=== PATIENT | male | born 1945 | race Caucasian/White ===

== ENCOUNTER 2016-07-03 15:07 | Emergency (ER) | payer MEDICAID, OTHER ==
[2016-07-03] MEDS ORDERED: Famotidine IV * 20 MG in NS 0.9% 100 ML* 100 ML IVPB ONE (16:12)
[2016-07-03] MEDS ORDERED: Dexamethasone IV* 4 MG/ML 1 ML (4 MG) IV SLOW PU ONE (16:12)
[2016-07-03] MEDS ORDERED: diPHENhydraMINE IV* 50 MG/ML 1 ml VIAL (BENADRYL) IV ONE (16:12)
[2016-07-03] MEDS ORDERED: metFORMIN* 500 MG TAB PO ONE (16:13)
[2016-07-03] MEDS ORDERED: NS 0.9% 1000 ML* 1,000 ML IV SCH (16:15)
[2016-07-03 16:53] LABS: Hematocrit 48 % (42-52); Hemoglobin 16.1 g/dl (14.0-18.0); Mean Corpuscular HGB Conc 33 g/dl (31-36); Mean Corpuscular Hemoglobin 31 pg (27-31); Mean Corpuscular Volume 94 fL (80-94); Mean Platelet Volume 11 um3 (7.4-10.4); Red Blood Count 5.16 10^6/ul (4.0-5.4); Red Cell Distribution Width 13 % (10.5-15); White Blood Count 7.8 10^3/ul (3.5-10.8)
[2016-07-03 17:08] LABS: BUN/Creatinine Ratio 13.9 (8-20); Calcium 9.8 mg/dL (8.6-10.3); EGFR African American 87.2 (>60); EGFR Non-African American 67.8 (>60); Globulin 2.5 g/dL (2-4); Potassium 3.7 mmol/L (3.5-5.0); Total Bilirubin 0.8 mg/dL (0.2-1.0); Total Protein 6.5 g/dL (6.4-8.9)
[2016-07-03 18:25] VITALS: BP 135/78
--- NOTE | 2016-07-03 18:35 | ED ---
Shaun Wray Matthew, scribed for Milo Ortiz MD on 07/03/16 at 1617 . Skin Complaint - HPI Summary HPI Summary: A 71 y/o male presents to the ED with a diffuse rash since 07/01/15. The pain is rated 2/10 in severity. The patient believes that he was bit by a spider. The patient took Benadryl [employer] without relieve. Associated symptoms include itchiness and blisters. The patient denies new detergents and soaps. He is a type 2 diabetic. - History of Current Complaint Chief Complaint: EDRashSkinAbscess Time Seen by Provider: 07/03/16 15:57 Stated Complaint: RASH/BLISTERS Hx Obtained From: Patient Onset/Duration: Started Days Ago, Atraumatic, Still Present Skin Exposure Onset/Duration: Days Ago Timing: Constant Onset Severity: Moderate Current Severity: Moderate Pain Intensity: 2 Pain Scale Used: 0-10 Numeric Skin Location: Diffuse Character: Pruritus, Hives, Redness Alleviating Symptom(s): Nothing Associated Signs & Symptoms: Rash - Allergy/Home Medications Allergies/Adverse Reactions: Allergies Allergy/AdvReac Type Severity Reaction Status Date / Time Codeine Allergy Unknown Unknown Verified 07/03/16 15:17 Reaction Details Iodine Allergy Unknown Unknown Verified 07/03/16 15:17 Reaction Details Penicillins AdvReac Vomiting Verified 07/03/16 15:17 peanuts Allergy Unknown Unknown Uncoded 07/03/16 15:17 Reaction Details PMH/Surg Hx/FS Hx/Imm Hx Endocrine/Hematology History: Reports: Hx Anticoagulant Therapy - warfarin, Hx Diabetes Denies: Hx Thyroid Disease Cardiovascular History: Reports: Hx Hypertension, Hx Syncope Denies: Hx Pacemaker/ICD Respiratory History: Reports: Hx Asthma - in younger years, Hx Pneumonia - in past, Hx Sleep Apnea Denies: Hx Chronic Obstructive Pulmonary Disease (COPD), Hx Pulmonary Edema History: Denies: Hx Renal Disease Musculoskeletal History: Reports: Hx Back Problems Sensory History: Reports: Hx Contacts or Glasses, Hx Hearing Problem - right ear Opthamlomology History: Reports: Hx Contacts or Glasses Neurological History: Reports: Hx Headaches Denies: Hx Dementia, Hx Seizures Psychiatric History: Denies: Hx Substance Abuse Infectious Disease History: No Infectious Disease History: Denies: Hx Hepatitis, Hx Human Immunodeficiency Virus (HIV), Traveled Outside the [place] in Last 30 Days - Family History Family History: FHx of Lung CA - Father - Social History Lives: With Family Alcohol Use: None Substance Use Type: Reports: None Hx Tobacco Use: No Smoking Status (MU): Never Smoked Tobacco Review of Systems Constitutional: Negative Eyes: Negative ENT: Negative Cardiovascular: Negative Respiratory: Negative Gastrointestinal: Negative Genitourinary: Negative Musculoskeletal: Negative Skin: Other - Itchiness, Blisters Positive: Rash - Diffuse hives Neurological: Negative Psychological: Normal All Other Systems Reviewed And Are Negative: Yes Physical Exam - Summary Physical Exam Summary: Vital signs: reviewed General: Patient is comfortable lying in stretcher with no signs of distress HEENT: within normal limits Lungs: CTA B/L CVS: S1 & S2 present. No murmurs appreciated. Abdomen: Soft, NT, Positive BS. Extremities: FROM x4, no edema, no cyanosis, positive pulses Neuro: Alert and oriented x 3. No acute neurological deficits. Skin: Warm and dry. Positive hives and rashes diffusely all over his body. Triage Information Reviewed: Yes Vital Signs On Initial Exam: Initial Vitals Temp Pulse Resp BP Pulse Ox 95.9 F 105 16 111/86 100 07/03/16 15:12 07/03/16 15:12 07/03/16 15:12 07/03/16 15:12 07/03/16 15:12 Vital Signs Reviewed: Yes Diagnostics - Vital Signs Vital Signs Temp Pulse Resp BP Pulse Ox 07/03/16 15:12 95.9 F 105 16 111/86 100 - Laboratory Lab Results: Lab Results 07/03/16 07/03/16 Range/Units 16:42 16:42 WBC 7.8 (3.5-10.8) 10^3/ul RBC 5.16 (4.0-5.4) 10^6/ul Hgb 16.1 (14.0-18.0) g/dl Hct 48 (42-52) % MCV 94 (80-94) fL MCH 31 (27-31) pg MCHC 33 (31-36) g/dl RDW 13 (10.5-15) % Plt Count 146 L (150-450) 10^3/ul MPV 11 H (7.4-10.4) um3 Neut % (Auto) 75.2 (38-83) % Lymph % (Auto) 16.0 L (25-47) % [place] % (Auto) 6.1 (1-9) % Eos % (Auto) 1.8 (0-6) % Baso % (Auto) 0.9 (0-2) % Absolute Neuts (auto) 5.9 (1.5-7.7) 10^3/ul Absolute Lymphs (auto) 1.3 (1.0-4.8) 10^3/ul Absolute Monos (auto) 0.5 (0-0.8) 10^3/ul Absolute Eos (auto) 0.1 (0-0.6) 10^3/ul Absolute Basos (auto) 0.1 (0-0.2) 10^3/ul Absolute Nucleated RBC 0.01 10^3/ul Nucleated RBC % 0.1 Sodium 132 L (133-145) mmol/L Potassium 3.7 (3.5-5.0) mmol/L Chloride 102 (101-111) mmol/L Carbon Dioxide 25 (22-32) mmol/L Anion Gap 5 (2-11) mmol/L BUN 15 (6-24) mg/dL Creatinine 1.08 (0.67-1.17) mg/dL Est GFR ( Amer) 87.2 (>60) Est GFR (Non-Af Amer) 67.8 (>60) BUN/Creatinine Ratio 13.9 (8-20) Glucose 163 H (70-100) mg/dL Calcium 9.8 (8.6-10.3) mg/dL Total Bilirubin 0.80 (0.2-1.0) mg/dL AST 44 H (13-39) U/L ALT 46 (7-52) U/L Alkaline Phosphatase 58 (34-104) U/L Total Protein 6.5 (6.4-8.9) g/dL Albumin 4.0 (3.2-5.2) g/dL Globulin 2.5 (2-4) g/dL Albumin/Globulin Ratio 1.6 (1-3) Result Diagrams: 07/03/16 16:42 07/03/16 16:42 Lab Statement: Any lab studies that have been ordered have been reviewed, and results considered in the medical decision making process. Course/Dx - Course Assessment/Plan: A 71 y/o male presents to the ED with a CC of diffuse generalized itchy hives since the 4th. The patient has been taking Benadryl with no symptom improvement. No new medication or perfumes, and he does not know the etiology. Test results WNL except slightly elevated glucose of 163. The patient is diabetic therefore Glucophage, Benadryl, Pepcid, and Decadron 4mg was given. After the medication, the symptoms improved. Th patient was advised to do frequent checks on his blood sugars and follow-up with PCP. At this point, the patient states all symptoms have improved. - Diagnoses Provider Diagnoses: Allergic Reaction with unknown etiology Discharge - Discharge Plan Condition: Stable Disposition: HOME Prescriptions: Famotidine TAB* [Pepcid TAB*] 40 mg PO DAILY #10 tab predniSONE TAB* [Deltasone TAB*] 40 mg PO DAILY #10 tab Patient Education Materials: Famotidine (By mouth), Prednisone (By mouth), Allergies (ED) Referrals: Brian Lozano MD [Primary Care Provider] - Additional Instructions: Please follow-up with your primary care physician in two days. The documentation as recorded by the Shaun emmanuel Matthew accurately reflects the service I personally performed and the decisions made by , Milo Ortiz MD.
[2016-07-03 22:01] LABS: C Reactive Protein 38.25 mg/L (< 5.00)
== END 2016-07-03 18:25 | disposition home or self-care (01) ==
LOC: ED 15:07
DX: T78.40XA Allergy, unspecified, initial encounter (principal); R21 Rash and other nonspecific skin eruption; L50.9 Urticaria, unspecified; L29.9 Pruritus, unspecified
CPT/HCPCS: 36415; 80053; 85025; 86140; 96365; 96375; 99282; A9270-GY; J1100; J1200

== ENCOUNTER 2017-02-12 12:33 | Emergency (ER) | payer OTHER ==
[2017-02-12] MEDS ORDERED: oxyCODONE/Acetamin 10/325(NF) TAB PO PRN (13:40)
[2017-02-12] MEDS ORDERED: oxyCODONE/Acetamin 5/325 MG* TAB PO PRN ×2 (14:01→14:07)
[2017-02-12] MEDS ORDERED: oxyCODONE TAB* 5 MG TAB PO PRN ×2 (14:03→14:36)
[2017-02-12] MEDS ORDERED: Ondansetron ODT TAB* 4 MG PO ONE (14:05)
--- NOTE | 2017-02-12 14:13 | RAD ---
HISTORY: Right humerus pain COMPARISONS: December 20, 2003 VIEWS: 7, Frontal internal rotation, external rotation, outlet, and axillary views of the right shoulder with frontal internal and external rotation views of the right humerus FINDINGS: BONE DENSITY: Normal. BONES: There is a displaced and somewhat angulated fracture of the surgical neck of the right humerus. 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 ALIGNMENT: There is no dislocation. SOFT TISSUES: Unremarkable. OTHER FINDINGS: None. IMPRESSION: FRACTURE OF THE PROXIMAL RIGHT HUMERUS
--- NOTE | 2017-02-12 14:17 | RAD ---
HISTORY: Right wrist pain, and pain COMPARISONS: None VIEWS: 4, Frontal and lateral views of the right wrist and of the right hand FINDINGS: BONE DENSITY: Normal. BONES: There is linear lucency of the proximal fifth metacarpal. There is a questionable linear lucency of the distal phalanx, seen on one projection only. JOINTS: There is no arthropathy. ALIGNMENT: There is no dislocation. SOFT TISSUES: Unremarkable. OTHER FINDINGS: None. IMPRESSION: 1. PROBABLE NONDISPLACED FRACTURE OF THE BASE OF THE FIFTH METACARPAL. 2. QUESTIONABLE NONDISPLACED FRACTURE OF THE DISTAL PHALANX. 3. RECOMMEND CORRELATION WITH SITE OF PAIN.
--- NOTE | 2017-02-12 14:18 | RAD ---
HISTORY: Right elbow pain COMPARISONS: None VIEWS: 2, Frontal and lateral views of the right elbow FINDINGS: BONE DENSITY: Normal. BONES: There is no displaced fracture. 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 There is no posterior supracondylar fat pad to suggest a joint effusion. ALIGNMENT: There is no dislocation. SOFT TISSUES: Unremarkable. OTHER FINDINGS: None. IMPRESSION: NO ACUTE OSSEOUS INJURY. IF SYMPTOMS PERSIST, RECOMMEND REPEAT IMAGING.
[2017-02-12] MEDS ORDERED: fentaNYL* 50 MCG/ML 2 ML VIAL (100 MCG VIAL) IV SLOW PU ONE ×2 (16:07→18:09)
--- NOTE | 2017-02-12 16:20 | RAD ---
HISTORY: Fall, right hand pain COMPARISONS: February 12, 2017 at 1:20 PM VIEWS: 1, oblique view of the right hand FINDINGS: BONE DENSITY: Normal. BONES: Again noted is a nondisplaced fracture of the base of the fifth metacarpal. The distal phalangeal fracture of the fifth digit is not well visualized on this oblique view. JOINTS: There is no arthropathy. ALIGNMENT: There is no dislocation. SOFT TISSUES: Unremarkable. OTHER FINDINGS: None. IMPRESSION: PERSISTENT NONDISPLACED FRACTURE OF THE BASE OF THE FIFTH METACARPAL
--- NOTE | 2017-02-12 17:06 | RAD ---
INDICATION: Traumatic fracture of the right shoulder. COMPARISON: Correlation is made with a prior x-ray study of the right shoulder of the same day. TECHNIQUE: Contiguous axial sections were obtained of the right shoulder. Images were reconstructed in the sagittal and coronal planes. FINDINGS: There is a comminuted fracture of the surgical neck of the humerus. The fracture extends through the humeral head to the articular surface. There is a mild step off along the articular surface of the humeral head at the level of the fracture of approximately 2 mm. The major fracture fragments are overriding with the distal fragment displaced anterior approximately one shaft diameter. The distal fragment is angulated posterior relative to the proximal fragment. The clavicle and scapula appear intact. No hematoma is seen. IMPRESSION: COMMINUTED, DISPLACED, ANGULATED INTRA-ARTICULAR FRACTURE OF THE SURGICAL NECK OF THE HUMERUS AND HUMERAL HEAD.
--- NOTE | 2017-02-12 18:46 | ED ---
Moreno Wray Angela, scribed for Milo Ortiz MD on 02/12/17 at 1303 . Upper Extremity Pain - HPI Summary HPI Summary: Pt is a 71 y/o male presenting to [facility] c/o right shoulder pain radiating to his wrist s/p fall 3 days ago. Pt notes he fell through a door in the dark with his arm extended out and landed on his right arm. Pt denies LOC but notes he hit his head against his boots. Pt describes an intermittent "burning" and tingling sensation on his right fingers. Pt denies sustaining any other injury, lower extremity pain, hip pain, chest pain, back pain and neck pain. He notes taking 2 vicodin (given by his nurse), his last was dose 4 hours [employer], and using wet moist heating pads with minimal relief. - History of Current Complaint Chief Complaint: EDShoulderClavicleInj Stated Complaint: FALL/RT SHOULDER PAIN Time Seen by Provider: 02/12/17 12:50 Hx Obtained From: Patient Mechanism Of Injury: Fall From Height Of: Onset/Duration: Started Days Ago, Still Present Timing: Lasting Days Pain Location: Shoulder - right, Wrist - right, Other: - right fingers Aggravating Factor(s): Nothing Alleviating Factor(s): Compression - cold Associated Signs & Symptoms: Positive: Swelling, Redness. Negative: Chest Pain , Back Pain, Neck Pain - Allergies/Home Medications Allergies/Adverse Reactions: Allergies Allergy/AdvReac Type Severity Reaction Status Date / Time Codeine Allergy Unknown Unknown Verified 02/12/17 12:36 Reaction Details Iodine Allergy Unknown Unknown Verified 02/12/17 12:36 Reaction Details Penicillins AdvReac Vomiting Verified 02/12/17 12:36 peanuts Allergy Unknown Unknown Uncoded 02/12/17 12:36 Reaction Details PMH/Surg Hx/FS Hx/Imm Hx Endocrine/Hematology History: Reports: Hx Anticoagulant Therapy - warfarin, Hx Diabetes Denies: Hx Thyroid Disease Cardiovascular History: Reports: Hx Atrial Fibrillation, Hx Hypertension, Hx Syncope Denies: Hx Pacemaker/ICD Respiratory History: Reports: Hx Asthma - in younger years, Hx Pneumonia - in past, Hx Sleep Apnea Denies: Hx Chronic Obstructive Pulmonary Disease (COPD), Hx Pulmonary Edema History: Denies: Hx Renal Disease Musculoskeletal History: Reports: Hx Back Problems Sensory History: Reports: Hx Contacts or Glasses, Hx Hearing Problem - right ear Opthamlomology History: Reports: Hx Contacts or Glasses Neurological History: Reports: Hx Headaches Denies: Hx Dementia, Hx Seizures Psychiatric History: Denies: Hx Substance Abuse Infectious Disease History: Denies: Hx Hepatitis, Hx Human Immunodeficiency Virus (HIV), Traveled Outside the [place] in Last 30 Days - Family History Family History: FHx of Lung CA - Father - Social History Alcohol Use: None Substance Use Type: Reports: None Hx Tobacco Use: No Smoking Status (MU): Never Smoked Tobacco Review of Systems Negative: Fever, Chills Negative: Chest Pain Musculoskeletal: Other - NEGATIVE: back pain, hip pain, LE pain Positive: Other - Right shoulder pain, right wrist pain, right fingers "burning " and tingling. All Other Systems Reviewed And Are Negative: Yes Physical Exam - Summary Physical Exam Summary: VITAL SIGNS: Reviewed. GENERAL: Patient is a well-developed and nourished male who is lying comfortable in the stretcher. Patient is not in any acute respiratory distress. HEAD AND FACE: Normocephalic and atraumatic. EYES: PERRLA, EOMI x 2, No injected conjunctiva. EARS: Hearing grossly intact. MOUTH: Oropharynx within normal limits. NECK: Supple, trachea is midline, no adenopathy, no JVD. CHEST: Symmetric, no tenderness at palpation LUNGS: Clear to auscultation bilaterally. No wheezing or crackles. CVS: RRR, S1 and S2 present, no murmurs or gallops appreciated. EXTREMITIES: FROM in all major joints, no edema, no cyanosis or clubbing. There is tenderness in the right shoulder with swelling and decreased ROM. There is good capillary refill. There are good pulses. NEURO: Alert and oriented x 3. No acute neurological deficits. Speech is normal. SKIN: Dry and warm Triage Information Reviewed: Yes Vital Signs On Initial Exam: Initial Vitals Temp Pulse Resp BP Pulse Ox 96.5 F 109 20 100/71 98 02/12/17 12:36 02/12/17 12:36 02/12/17 12:36 02/12/17 12:36 02/12/17 12:36 Vital Signs Reviewed: Yes Diagnostics - Vital Signs Vital Signs Temp Pulse Resp BP Pulse Ox 02/12/17 12:36 96.5 F 109 20 100/71 98 - Laboratory Lab Results: Lab Results 02/12/17 Range/Units 14:53 POC Glucose (mg/dL) 190 H (70-100) mg/dL Lab Statement: Any lab studies that have been ordered have been reviewed, and results considered in the medical decision making process. - Radiology Right Hand XR Xray Interpretation: Positive (See Comments) - IMPRESSION: 1. Probable nondisplaced fracture of the base of the fifth metacarpal. 2. Questionable nondisplaced fracture of the distal phalanx. 3. Recommend correlation with site of pain. Radiology Interpretation Completed By: Radiologist Right shoulder XR Xray Interpretation: Positive (See Comments) - IMPRESSION: Fracture of the proximal right humerus Radiology Interpretation Completed By: Radiologist Right Wrist XR Xray Interpretation: Positive (See Comments) - IMPRESSION: 1. Probable nondisplaced fracture of the base of the fifth metacarpal. 2. Questionable nondisplaced fracture of the distal phalanx. 3. Recommend correlation with site of pain. Radiology Interpretation Completed By: Radiologist Right elbow XR Xray Interpretation: No Acute Changes - IMPRESSION: No acute osseous injury. If symptoms persist, recommed repeat imaging. Radiology Interpretation Completed By: Radiologist Right humerus XR Xray Interpretation: Positive (See Comments) - IMPRESSION: Fracture of the proximal right humerus. Radiology Interpretation Completed By: Radiologist Right hand XR Xray Interpretation: Positive (See Comments) - IMPRESSION: persistent nondisplaced fracture of the base of the fifth metacarpal. Radiology Interpretation Completed By: Radiologist - CT Right Upper Extremity CT CT Interpretation: Positive (See Comments) - IMPRESSION: Comminuted, displaced, angulated intra-articular fracture of the surgical neck of the humerus and humeral head. CT Interpretation Completed By: Radiologist Course/Dx - Course Course Of Treatment: Pt is a 71 y/o male presenting to [facility] c/o right shoulder pain radiating to his wrist s/p fall 3 days ago. Pt notes he fell through a door in the dark with his arm extended out and landed on his right arm. Pt denies LOC but notes he hit his head against his boots. Pt describes an intermittent "burning" and tingling sensation on his right fingers. Pt denies sustaining any other injury, lower extremity pain, hip pain, chest pain, back pain and neck pain. He notes taking 2 vicodin (given by his nurse), his last was dose 4 hours [employer], and using wet moist heating pads with minimal relief. X- ray showed that the pt has a right humerus fracture as well as a right fifth metacarpal fracture. I consulted with Dr. Cole who requested I do a CT scan of the shoulder. After the CT was reviewed by Dr. Cole, he examined the pt and he requested that the pt be placed in a shoulder sling and a right wrist splint. He also recommends the pt to be discharged home and follow up with him next week in his office. At this time I discussed all the results with the pt, he understands and agrees with the plan. Dr. Cole did not request to do any blood work or any further work up for surgery clearance. I discussed all the findings and test results with the patient. Patient was instructed to return to the emergency room immediately if any of the symptoms return or worsens. Plan of care was discussed with the patient and understands and agrees. All questions were answered at patient satisfaction. There were no further complaints or concerns. - Diagnoses Provider Diagnoses: Fracture of neck of humerus, Fracture of fifth metacarpal bone - Physician Notifications Discussed Care of Patient With: Elian Cole Time Discussed With Above Provider: 15:53 Instructed by Provider To: Other - I consulted the pt's case with Dr. Cole. He recommends a CT of the shoulder. Discharge - Discharge Plan Condition: Stable Disposition: HOME Patient Education Materials: Arm Fracture in Adults (ED), Hand Fracture (ED) Referrals: Brian Lozano MD [Primary Care Provider] - Elian Cole MD [Medical Doctor] - Additional Instructions: Please follow up with Dr. Cole (orthopedics) next week. The documentation as recorded by the Moreno emmanuel Angela accurately reflects the service I personally performed and the decisions made by , Milo Ortiz MD.
[2017-02-12 19:13] VITALS: BP 127/80
--- NOTE | 2017-02-12 22:21 | CONS ---
CONSULTATION REPORT: DATE OF CONSULT: 02/12/17 REASON FOR CONSULT: Right shoulder and hand fractures. HISTORY OF PRESENT ILLNESS: The patient is a 71-year-old man, retired, a of , wi th multiple medical problems, on Coumadin, who presents 3 days status post a fall at home, on , determined by the emergency department to have fractures to the right proximal humerus and right fifth metatarsal. I was called to evaluate. The patient's reports that the patient fell from a standing height at home to an outstretched r ight hand. The patient is not sure if he dislocated his shoulder or not. He just notes that it divina t significantly. The patient refused to seek medical attention for 3 days, but finally relented. The patient reports right shoulder pain and right hand pain. The patient's has an acute medica l issue, with some cataracts and a recent history of brain aneurysm requiring intense medical manage ment. The patient describes right shoulder pain. The patient's and he, both acknowledged that the pa tient prefers to minimize medical care. PAST MEDICAL HISTORY: Hypertension, gastroesophageal reflux disease, seasonal allergies, diabetes m ellitus, hypercholesterolemia, atrial fibrillation. PAST SURGICAL HISTORY: Tonsillectomy, vasectomy. MEDICATIONS: 1. Amlodipine. 2. AndroGel. 3. Atenolol. 4. Diphenhydramine. 5. Duloxetine. 6. Docusate. 7. Exenatide. 8. Fluticasone nasal spray. 9. Famotidine. 10. Fexofenadine. 11. Furosemide. 12. Glipizide. 13. Hydrocodone with acetaminophen. 14. Lansoprazole. 15. Metformin. 16. Oxycodone. 17. Pravastatin. 18. Spironolactone. 19. Sucralfate. 20. Warfarin. 21. Valsartan. 22. Zolpidem. 23. Multiple supplements. 24. Mupirocin ointment. 25. Urea cream. 26. Clindamycin phosphate topical solution. ALLERGIES: PENICILLIN, CODEINE, IODINE CONTRAST, OLSON PEPPERS, PEANUT OIL, IMITATION MAPLE. REVIEW OF SYSTEMS: No chest pain, no fevers, sweats, chills, no shortness of breath. PHYSICAL EXAM: Vitals at 1:02 p.m.; temperature 97.6 degrees Fahrenheit, pulse rate 99, blood press ure 119/82, respiratory rate 18, O2 sat 95% on room air. More recent blood pressure at 2:30 p.m. is 106/72. At 2:30 p.m., pulse rate was 102 and O2 sat was 91% on room air. No acute distress, alert and oriented, appropriate mood and affect, appropriate dress and hygiene, a lbeit slightly disheveled, gait was not assessed as the patient was lying supine in the emergency ro om stretcher. Well-coordinated bilateral upper and lower extremities. Right upper extremity is tender to palpation about the proximal humerus. Pain with passive range of motion of the right shoulder. No soft tissue swelling or bruising. Skin is intact. Right upper e xtremity is neurovascularly intact distally. The patient has tenderness to palpation at the base of the fifth metatarsal. No significant soft ti ssue swelling or bruising. Intact skin. No other tenderness to palpation about the right upper extremity. DIAGNOSTIC STUDIES/LAB DATA: Imaging: X-ray views; a series of right shoulder views and right madeleine demetria views from today, February 12, were reviewed by me. They demonstrate a right proximal humerus f racture with displacement at a surgical neck fracture line. There is also a clear fracture line abo ut the superior humeral head visible on AP images. Unclear if there is an anatomic neck fracture li ne. Glenohumeral joint appears located. Four x-ray views of the right hand were also obtained and demonstrate a nondisplaced fracture of the base of the fifth metacarpal with no clear dislocation of the fifth carpometacarpal joint. A CT scan of the right shoulder was obtained. It shows a right proximal humerus fracture with a pre dominant surgical neck fracture line with displacement. There is 1.5 cm of anterior displacement of the humeral shaft fracture fragment. Only some mild overlap between fracture fragments in that sag ittal plane. In the coronal plane, there is approximately 20 degrees of angulation. There is a Hil l- Sachs fracture fragment, apparent on axial slices. This fracture fragment seems to have been dep ressed, pushed anteriorly, and also pushed superiorly and that is the fracture line visible on coron al slices of both x-ray and CT. ASSESSMENT: 1. Right shoulder proximal humerus fracture, displaced, surgical neck. 2. Right shoulder proximal humerus Hill-Sachs fracture, likely secondary to a fracture dislocation event, right shoulder. 3. Right hand base of fifth metacarpal fracture, nondisplaced. PLAN: 1. Before the patient returned from imaging, the patient's told me that he strongly prefers av oiding medical care and intervention, that was why the patient took 3 days to report to the hospital . The patient's herself also has some current medical issues that is occupying the time of bot h the patient and his . Therefore, they prefer less intervention. 2. I explained that given the amount of displacement in the sagittal plane at the surgical neck, a surgery could certainly be indicated. Generally, more than 1 cm of displacement is an indication fo r surgery. However, given the patient's multiple medical problems, his lower functional level and h is increase in avoiding medical care, nonoperative management would also be appropriate. 3. The patient, his , and I decided to treat him nonoperatively for now. We will see if the fr acture reduction improves with some time and the gravity assistance of wearing a sling. 4. The patient will be given a sling for the right upper extremity and is to wear it at all times, both daytime and nighttime while sleeping. 5. The patient will be given a removable wrist splint for the right fifth metacarpal fracture. 6. The patient will follow up with me in clinic on Wednesday or Wednesday, 02/22/17 or 02/23/17. I will obtain x-rays of the right shoulder at that time. We will decide whether the patient should underg o surgery or continue nonoperative management. 7. The patient's surgery, if performed as an outpatient, would be limited in timing by his [facility] ent of stopping Coumadin as well as being seen by primary care physician. However, that is our plan for now. [id number]/[facility] #: [id number]
== END 2017-02-12 19:13 | disposition home or self-care (01) ==
LOC: ED 12:33
DX: M25.511 Pain in right shoulder (principal); M25.531 Pain in right wrist; S42.309A Unspecified fracture of shaft of humerus, unspecified arm, initial encounter for closed fracture; W19.XXXA Unspecified fall, initial encounter; Y93.9 Activity, unspecified; Y92.9 Unspecified place or not applicable; Z79.01 Long term (current) use of anticoagulants; Z86.79 Personal history of other diseases of the circulatory system; E11.9 Type 2 diabetes mellitus without complications
CPT/HCPCS: 99283; A9270-GY; J3010

== ENCOUNTER 2022-10-23 08:37 | Inpatient (IN) ==
[2022-10-23] MEDS ORDERED: NS 0.9% 1000 ml BAG 1,000 ML IV ONE ×2 (09:18→10:24)
[2022-10-23 10:20] LABS: ABS Basophils 0.1 10^3/uL (0.0-0.1); ABS Lymphocytes 0.2 10^3/uL (1.0-4.8); ABS Monocytes 0.5 10^3/uL (0.0-1.1); ABS Neutrophils 9.4 10^3/uL (1.5-7.6); ABS Nucleated RBC 0.01 10^3/ul; Hematocrit 39.9 % (38-53); Hemoglobin 13.1 g/dL (13.2-16.3); Mean Corpuscular Hemoglobin 29.7 pg (27-33); Mean Corpuscular Hgb Conc 32.9 g/dL (31-36); Mean Corpuscular Volume 90.3 fL (80-97); Mean Platelet Volume 8.4 fL (7.5-11.2); Platelet Count 269 10^3/uL (150-450); Red Blood Count 4.43 10^6/uL (4.06-5.63); Red Cell Distribution Width 20.1 % (12-17); White Blood Count 10.2 10^3/uL (3.6-10.2)
[2022-10-23] MEDS ORDERED: Vancomycin 1,000 MG in NS 0.9% 250 ml 250 ML IVPB ONE (10:45)
[2022-10-23] MEDS ORDERED: Cefepime 1 GM in Dextrose 1 GM/50 ML BAG IV ONE (10:45)
[2022-10-23 11:12] LABS: Albumin 2.5 g/dL (3.2-5.2); C Reactive Protein 181.46 mg/L (<8.01); Calcium 7.8 mg/dL (8.6-10.3); Creatinine, Serum 2.65 mg/dL (0.67-1.17); Globulin 2.6 g/dL (2-4); Magnesium 1.4 mg/dL (1.9-2.7); Phosphorus 4.1 mg/dL (2.5-5.0); Potassium 5.7 mmol/L (3.5-5.0); Total Bilirubin 1.6 mg/dL (0.2-1.0); Total Protein 5.1 g/dL (6.4-8.9); eGFR CKD-EPI 24.4 (>60)
[2022-10-23] MEDS ORDERED: Lidocaine 4% GEL 10 GM TUBE TOPICAL ONE (11:16)
[2022-10-23] MEDS ORDERED: Morphine 4 MG/ML VIAL (1 ml) IV ONE (11:28)
[2022-10-23] MEDS ORDERED: Lidocaine 2% JELLY 6 ML Topical TOPICAL ONE (11:30)
[2022-10-23 11:41] LABS: High Sensitivity Troponin 1 Hr 13 pg/mL (<20)
[2022-10-23] MEDS ORDERED: Magnesium Sulfate 2 gm BAG 2 GM/50 ML BAG IVPB ONE (12:13)
[2022-10-23 12:15] LABS: Urine Appearance Cloudy; Urine Bilirubin Negative (Negative); Urine Blood Negative (Negative); Urine Color Amber; Urine Glucose Negative (Negative); Urine Ketones Negative (Negative); Urine Nitrite Negative (Negative); Urine Protein 1+(30 mg/dL) (Negative); Urine Specific Gravity 1.023 (1.002-1.030); Urine Urobilinogen Negative (Negative)
[2022-10-23 12:19] LABS: Urine Bacteria Absent (Absent); Urine Red Blood Cell Trace(0-2/hpf) (Absent); Urine Squamous Epithelial Cell Present (Absent); Urine White Blood Cell Trace(0-5/hpf) (Absent)
[2022-10-23] MEDS ORDERED: Vancomycin per Pharmacy 1 EA NOTE FOLLOW UP SCH (15:00)
[2022-10-23 16:26] LABS: INR 3.67 (0.88-1.18)
[2022-10-23 17:14] LABS: Potassium 5.6 mmol/L (3.5-5.0)
[2022-10-23] MEDS: Lactated Ringers 1000 ml BAG 1,000 ML IV SCH (17:28)
[2022-10-23] MEDS ORDERED: SODIUM ZIRCONIUM CYCLOSILICATE 10 GM PACKET PO ONE (17:36)
[2022-10-23] MEDS ORDERED: Polyethylene Glycol 3350 BTL 238 GM BTL PO PRN (17:36)
[2022-10-23] MEDS ORDERED: Digoxin IV 0.5 MG/2 ML AMP (0.25 MG/ML) IV SLOW PU ONE (17:46)
[2022-10-23] MEDS ORDERED: Polyethylene Glycol 3350 17 GM PACKET PO PRN (18:00)
[2022-10-23] MEDS ORDERED: HYDROcodone/ACETAMIN 5/325 mg TAB PO PRN (18:27)
[2022-10-24] MEDS: Lactated Ringers 1000 ml BAG 1,000 ML IV SCH ×2 (03:24→13:55)
[2022-10-24 05:47] LABS: ABS Lymphocytes 0.3 10^3/uL (1.0-4.8); ABS Monocytes 0.4 10^3/uL (0.0-1.1); ABS Neutrophils 6.2 10^3/uL (1.5-7.6); ABS Nucleated RBC 0.01 10^3/ul; Eosinophil % 0.5 %; Hematocrit 34.9 % (38-53); Hemoglobin 11.6 g/dL (13.2-16.3); Mean Corpuscular Hemoglobin 29.8 pg (27-33); Mean Corpuscular Hgb Conc 33.2 g/dL (31-36); Mean Corpuscular Volume 89.7 fL (80-97); Mean Platelet Volume 8.3 fL (7.5-11.2); Nucleated Red Blood Cells % 0.1 /100 WBC (0.0-0.4); Platelet Count 217 10^3/uL (150-450); Red Blood Count 3.89 10^6/uL (4.06-5.63); Red Cell Distribution Width 19.7 % (12-17)
[2022-10-24 05:58] LABS: INR 3.93 (0.88-1.18)
[2022-10-24] MEDS ORDERED: Vancomycin Random Level NOTE FOLLOW UP ONE (06:00)
[2022-10-24 06:33] LABS: Calcium 7.4 mg/dL (8.6-10.3); Creatinine, Serum 2.78 mg/dL (0.67-1.17); Potassium 5.6 mmol/L (3.5-5.0); Vancomycin Random 7.7 mcg/mL
[2022-10-24] MEDS: Multivitamins/Minerals TAB PO SCH (09:50)
[2022-10-24] MEDS: Cefepime 2 GM in Dextrose 2 GM/50 ML BAG IV SCH (09:50)
[2022-10-24] MEDS ORDERED: SODIUM ZIRCONIUM CYCLOSILICATE 10 GM PACKET PO ONE (11:38)
[2022-10-24] MEDS ORDERED: Vancomycin 1,250 MG in NS 0.9% 250 ml 250 ML IVPB ONE (14:00)
[2022-10-24] MEDS ORDERED: Dextrose 50% Syringe 50 ml 25 GM/50 ML SYRINGE IV PUSH PRN (18:23)
[2022-10-25] MEDS: Lactated Ringers 1000 ml BAG 1,000 ML IV SCH (01:06)
[2022-10-25 05:25] LABS: C Reactive Protein 165.65 mg/L (<8.01); Calcium 7.2 mg/dL (8.6-10.3); Creatinine, Serum 2.54 mg/dL (0.67-1.17); Potassium 4.8 mmol/L (3.5-5.0); Vancomycin Random 13.7 mcg/mL; eGFR CKD-EPI 25.6 (>60)
[2022-10-25] MEDS ORDERED: Vancomycin Random Level NOTE FOLLOW UP ONE (06:00)
[2022-10-25] MEDS: Cefepime 2 GM in Dextrose 2 GM/50 ML BAG IV SCH (08:54)
[2022-10-25] MEDS: Multivitamins/Minerals TAB PO SCH (08:55)
[2022-10-25 11:23] LABS: Digoxin 0.4 ng/ml (0.8-2.0)
[2022-10-25] MEDS ORDERED: Vancomycin 1000 MG in NS 0.9% 250 ML IVPB ONE (21:00)
[2022-10-25] MEDS ORDERED: Heparin 5000 UNITS/ML 1 mL VIAL SUBCUT SCH (22:00)
[2022-10-26 05:22] LABS: INR 2.69 (0.88-1.18)
[2022-10-26] MEDS ORDERED: Vancomycin Random Level NOTE FOLLOW UP ONE (06:00)
[2022-10-26 06:13] LABS: Albumin 2.1 g/dL (3.2-5.2); Albumin/Globulin Ratio 0.9 (1-3); C Reactive Protein 130.46 mg/L (<8.01); Calcium 7.6 mg/dL (8.6-10.3); Creatinine, Serum 2.05 mg/dL (0.67-1.17); Direct Bilirubin 0.8 mg/dL (0.03-0.18); Globulin 2.3 g/dL (2-4); Indirect Bilirubin 0.9 mg/dL (0.3-1.0); Potassium 4.6 mmol/L (3.5-5.0); Total Bilirubin 1.7 mg/dL (0.2-1.0); Total Protein 4.4 g/dL (6.4-8.9); Vancomycin Random 16.6 mcg/mL; eGFR CKD-EPI 33.2 (>60)
[2022-10-26] MEDS: Multivitamins/Minerals TAB PO SCH (09:31)
[2022-10-26] MEDS: Cefepime 2 GM in Dextrose 2 GM/50 ML BAG IV SCH (09:31)
[2022-10-26] MEDS: Prochlorperazine 5 mg/ml 2 ml VIAL (10 mg) IV PRN (19:45)
[2022-10-26] MEDS: Lactated Ringers 1000 ml BAG 1,000 ML IV SCH (20:27)
[2022-10-26] MEDS: ceFAZolin 1 GM ADVAN 1 GM in NS 0.9% 50 ML 50 ML IVPB SCH (22:22)
[2022-10-27 05:07] LABS: ABS Lymphocytes 0.3 10^3/uL (1.0-4.8); ABS Monocytes 0.8 10^3/uL (0.0-1.1); ABS Neutrophils 6.2 10^3/uL (1.5-7.6); ABS Nucleated RBC 0.01 10^3/ul; Eosinophil % 0.6 %; Hemoglobin 12.1 g/dL (13.2-16.3); Lymphocyte % 3.7 %; Mean Corpuscular Hemoglobin 29.3 pg (27-33); Mean Corpuscular Hgb Conc 32.7 g/dL (31-36); Mean Corpuscular Volume 89.8 fL (80-97); Mean Platelet Volume 8.1 fL (7.5-11.2); Nucleated Red Blood Cells % 0.1 /100 WBC (0.0-0.4); Platelet Count 182 10^3/uL (150-450); Red Blood Count 4.11 10^6/uL (4.06-5.63); Red Cell Distribution Width 20.2 % (12-17); White Blood Count 7.3 10^3/uL (3.6-10.2)
[2022-10-27 05:08] LABS: INR 2.68 (0.88-1.18)
[2022-10-27 05:25] LABS: C Reactive Protein 104.52 mg/L (<8.01); Calcium 7.6 mg/dL (8.6-10.3); Creatinine, Serum 2.11 mg/dL (0.67-1.17); Potassium 4.8 mmol/L (3.5-5.0)
[2022-10-27] MEDS: Lactated Ringers 1000 ml BAG 1,000 ML IV SCH (06:24)
[2022-10-27] MEDS: Multivitamins/Minerals TAB PO SCH (09:06)
[2022-10-27] MEDS: ceFAZolin 1 GM ADVAN 1 GM in NS 0.9% 50 ML 50 ML IVPB SCH ×2 (09:07→22:30)
[2022-10-27] MEDS: Prochlorperazine 5 mg/ml 2 ml VIAL (10 mg) IV PRN (09:57)
[2022-10-27] MEDS ORDERED: Magnesium Sulfate 2 gm BAG 2 GM/50 ML BAG IVPB ONE (16:38)
[2022-10-27 17:36] LABS: Magnesium 1.8 mg/dL (1.9-2.7)
[2022-10-28 05:38] LABS: ABS Basophils 0.1 10^3/uL (0.0-0.1); ABS Eosinophils 0.1 10^3/uL (0.0-0.5); ABS Lymphocytes 0.3 10^3/uL (1.0-4.8); ABS Monocytes 1.1 10^3/uL (0.0-1.1); ABS Neutrophils 7.3 10^3/uL (1.5-7.6); ABS Nucleated RBC 0.01 10^3/ul; Eosinophil % 0.6 %; Hematocrit 39.8 % (38-53); Hemoglobin 13.1 g/dL (13.2-16.3); Lymphocyte % 3.4 %; Mean Corpuscular Hemoglobin 29.2 pg (27-33); Mean Corpuscular Volume 88.6 fL (80-97); Nucleated Red Blood Cells % 0.1 /100 WBC (0.0-0.4); Platelet Count 220 10^3/uL (150-450); Red Blood Count 4.49 10^6/uL (4.06-5.63); Red Cell Distribution Width 20.3 % (12-17); White Blood Count 8.8 10^3/uL (3.6-10.2)
[2022-10-28 06:25] LABS: Calcium 7.6 mg/dL (8.6-10.3); Magnesium 2.1 mg/dL (1.9-2.7)
[2022-10-28 06:30] LABS: Creatinine, Serum 1.95 mg/dL (0.67-1.17); eGFR CKD-EPI 35.2 (>60)
[2022-10-28] MEDS: ceFAZolin 1 GM ADVAN 1 GM in NS 0.9% 50 ML 50 ML IVPB SCH ×2 (09:14→20:43)
[2022-10-28] MEDS: Multivitamins/Minerals TAB PO SCH (09:27)
[2022-10-28] MEDS: Prochlorperazine 5 mg/ml 2 ml VIAL (10 mg) IV PRN (10:44)
[2022-10-29 05:59] LABS: Hematocrit 41.7 % (38-53); Hemoglobin 13.8 g/dL (13.2-16.3); Mean Corpuscular Hemoglobin 29.5 pg (27-33); Mean Corpuscular Hgb Conc 33.2 g/dL (31-36); Mean Corpuscular Volume 88.8 fL (80-97); Mean Platelet Volume 8.4 fL (7.5-11.2); Platelet Count 263 10^3/uL (150-450); Red Blood Count 4.69 10^6/uL (4.06-5.63); White Blood Count 9.7 10^3/uL (3.6-10.2)
[2022-10-29 07:09] LABS: Calcium 7.9 mg/dL (8.6-10.3); Creatinine, Serum 2.05 mg/dL (0.67-1.17); Magnesium 2.2 mg/dL (1.9-2.7); Potassium 4.9 mmol/L (3.5-5.0); eGFR CKD-EPI 33.2 (>60)
[2022-10-29] MEDS: Prochlorperazine 5 mg/ml 2 ml VIAL (10 mg) IV PRN (08:34)
[2022-10-29 08:49] LABS: ABS Basophils 0.1 10^3/uL (0.0-0.1); ABS Lymphocytes 0.4 10^3/uL (1.0-4.8); ABS Monocytes 0.8 10^3/uL (0.0-1.1); ABS Neutrophils 8.4 10^3/uL (1.5-7.6); ABS Nucleated RBC 0.01 10^3/ul; Eosinophil % 0.4 %; Lymphocyte % 3.6 %; Nucleated Red Blood Cells % 0.1 /100 WBC (0.0-0.4)
[2022-10-29] MEDS: Multivitamins/Minerals TAB PO SCH (10:12)
[2022-10-29] MEDS: ceFAZolin 1 GM ADVAN 1 GM in NS 0.9% 50 ML 50 ML IVPB SCH (10:27)
[2022-10-29] MEDS ORDERED: Albumin Human 25% 25 GM/100 ML BTL IV ONE (13:46)
[2022-10-29 14:30] LABS: INR 3.95 (0.88-1.18)
[2022-10-29] MEDS: Lactulose 30 ml UDC PO SCH ×2 (22:48→23:57)
[2022-10-29] MEDS ORDERED: NS 0.9% 1000 ml BAG 1,000 ML IV ONE (23:48)
[2022-10-30] MEDS: Albumin Human 25% 25 GM/100 ML BTL IV SCH ×3 (02:10→04:39)
[2022-10-30] MEDS ORDERED: Metoprolol Tartrate 5 mg VIAL 5 ml VIAL (1 mg/ml) IV ONE (02:29)
[2022-10-30 06:28] LABS: Hemoglobin 11.3 g/dL (13.2-16.3); Mean Corpuscular Hemoglobin 29.3 pg (27-33); Mean Corpuscular Hgb Conc 33.1 g/dL (31-36); Mean Corpuscular Volume 88.6 fL (80-97); Platelet Count 233 10^3/uL (150-450); Red Blood Count 3.84 10^6/uL (4.06-5.63); White Blood Count 9.2 10^3/uL (3.6-10.2)
[2022-10-30 06:34] LABS: INR 4.47 (0.88-1.18)
[2022-10-30 07:02] LABS: Albumin 3.4 g/dL (3.2-5.2); Calcium 8.4 mg/dL (8.6-10.3); Creatinine, Serum 2.26 mg/dL (0.67-1.17); Globulin 1.7 g/dL (2-4); Potassium 4.8 mmol/L (3.5-5.0); Total Bilirubin 1.5 mg/dL (0.2-1.0); Total Protein 5.1 g/dL (6.4-8.9); eGFR CKD-EPI 29.5 (>60)
[2022-10-30 08:26] LABS: ABS Lymphocytes 0.4 10^3/uL (1.0-4.8); ABS Monocytes 0.8 10^3/uL (0.0-1.1); ABS Nucleated RBC 0.01 10^3/ul; Eosinophil % 0.3 %; Lymphocyte % 4.2 %; Nucleated Red Blood Cells % 0.1 /100 WBC (0.0-0.4)
[2022-10-30] MEDS: Multivitamins/Minerals TAB PO SCH ×2 (10:59→18:00)
[2022-10-30] MEDS: Lactulose 30 ml UDC PO SCH ×3 (10:59→19:24)
[2022-10-30] MEDS ORDERED: NS 0.9% 1000 ml BAG 1,000 ML IV SCH (17:00)
[2022-10-30] MEDS: cefTRIAXone 1 gm/50 mL D5W 1 GM/50 ML BAG IV SCH (18:20)
[2022-10-30] MEDS: Pantoprazole VIAL 40 MG VIAL IV SCH (18:20)
[2022-10-30] MEDS: Dextran 70/Hypromellose Tears Eye Drops 15 ml BTL (for Artificials Tears) BOTH EYES PRN ×2 (18:21→22:21)
[2022-10-30] MEDS: fentaNYL 100 mcg/2 ml 50 MCG/ML VIAL IV SLOW PU PRN (23:13)
[2022-10-31 05:23] LABS: ABS Basophils 0.1 10^3/uL (0.0-0.1); ABS Eosinophils 0.1 10^3/uL (0.0-0.5); ABS Lymphocytes 0.3 10^3/uL (1.0-4.8); ABS Monocytes 0.5 10^3/uL (0.0-1.1); ABS Nucleated RBC 0.01 10^3/ul; Eosinophil % 0.9 %; Hematocrit 38.6 % (38-53); Hemoglobin 13.1 g/dL (13.2-16.3); Lymphocyte % 3.1 %; Mean Corpuscular Hemoglobin 30.7 pg (27-33); Mean Corpuscular Hgb Conc 33.9 g/dL (31-36); Mean Corpuscular Volume 90.6 fL (80-97); Nucleated Red Blood Cells % 0.1 /100 WBC (0.0-0.4); Platelet Count 222 10^3/uL (150-450); Red Blood Count 4.26 10^6/uL (4.06-5.63); Red Cell Distribution Width 20.6 % (12-17)
[2022-10-31 05:46] LABS: INR 4.19 (0.88-1.18)
[2022-10-31 06:00] LABS: Albumin 2.9 g/dL (3.2-5.2); Albumin/Globulin Ratio 1.5 (1-3); Calcium 8.2 mg/dL (8.6-10.3); Creatinine, Serum 1.97 mg/dL (0.67-1.17); Globulin 1.9 g/dL (2-4); Potassium 4.6 mmol/L (3.5-5.0); Total Bilirubin 1.6 mg/dL (0.2-1.0); Total Protein 4.8 g/dL (6.4-8.9); eGFR CKD-EPI 34.8 (>60)
[2022-10-31] MEDS: Lactulose 30 ml UDC PO SCH ×2 (08:11→20:31)
[2022-10-31] MEDS: Multivitamins/Minerals TAB PO SCH (08:12)
[2022-10-31] MEDS: fentaNYL 100 mcg/2 ml 50 MCG/ML VIAL IV SLOW PU PRN ×2 (08:23→14:26)
[2022-10-31] MEDS: Pantoprazole VIAL 40 MG VIAL IV SCH ×2 (08:23→20:35)
[2022-10-31] MEDS: Dextran 70/Hypromellose Tears Eye Drops 15 ml BTL (for Artificials Tears) BOTH EYES PRN (11:18)
[2022-10-31] MEDS ORDERED: Phytonadione IV (Adult) 2.5 MG in NS 0.9% 50 ML 50 ML IV ONE (13:02)
[2022-10-31 14:19] LABS: Digoxin 1.2 ng/ml (0.8-2.0)
[2022-10-31] MEDS: fentaNYL PATCH 25 MCG/HR 1 PATCH TRANSDERM SCH (14:26)
[2022-10-31] MEDS: cefTRIAXone 1 gm/50 mL D5W 1 GM/50 ML BAG IV SCH (15:52)
[2022-10-31] MEDS ORDERED: PPN (PERIPHERAL) 24 HR with D10W 1000 ml BAG 1,000 ML, Amino Acid Infusion 10% 850 ML, ... IV SCH (17:00)
[2022-10-31] MEDS ORDERED: TPN 24 HR with Dextrose 50% Water 500 ML, Amino Acid Infusion 10% 850 ML, Sterile Water... CENT\\PICC SCH (17:00)
[2022-10-31] MEDS: fentaNYL Patch Check Q Shift NOTE FOLLOW UP SCH (18:51)
[2022-11-01 06:45] LABS: ABS Basophils 0.1 10^3/uL (0.0-0.1); ABS Lymphocytes 0.3 10^3/uL (1.0-4.8); ABS Monocytes 0.6 10^3/uL (0.0-1.1); ABS Neutrophils 10.7 10^3/uL (1.5-7.6); ABS Nucleated RBC 0.01 10^3/ul; Eosinophil % 0.2 %; Hemoglobin 13.9 g/dL (13.2-16.3); Lymphocyte % 2.3 %; Mean Corpuscular Hemoglobin 29.6 pg (27-33); Mean Corpuscular Hgb Conc 33.1 g/dL (31-36); Mean Corpuscular Volume 89.4 fL (80-97); Mean Platelet Volume 8.4 fL (7.5-11.2); Nucleated Red Blood Cells % 0.1 /100 WBC (0.0-0.4); Platelet Count 260 10^3/uL (150-450); White Blood Count 11.6 10^3/uL (3.6-10.2)
[2022-11-01 06:51] LABS: INR 1.59 (0.88-1.18)
[2022-11-01 07:22] LABS: Albumin 2.7 g/dL (3.2-5.2); Albumin/Globulin Ratio 1.4 (1-3); Calcium 8.5 mg/dL (8.6-10.3); Creatinine, Serum 1.73 mg/dL (0.67-1.17); Potassium 4.7 mmol/L (3.5-5.0); Total Bilirubin 1.7 mg/dL (0.2-1.0); Total Protein 4.7 g/dL (6.4-8.9); eGFR CKD-EPI 40.7 (>60)
[2022-11-01] MEDS: Lactulose 30 ml UDC PO SCH ×2 (09:09→20:52)
[2022-11-01] MEDS: Pantoprazole VIAL 40 MG VIAL IV SCH ×2 (11:00→20:56)
[2022-11-01] MEDS: fentaNYL Patch Check Q Shift NOTE FOLLOW UP SCH ×2 (11:01→19:01)
[2022-11-01] MEDS ORDERED: Metoprolol Tartrate 5 mg VIAL 5 ml VIAL (1 mg/ml) IV ONE (14:14)
[2022-11-01] MEDS: cefTRIAXone 1 gm/50 mL D5W 1 GM/50 ML BAG IV SCH (15:31)
[2022-11-01] MEDS ORDERED: TPN 24 HR with Dextrose 40% Water 500 ML, Amino Acid Infusion 10% 850 ML, Sterile Water... CENT\\PICC SCH (17:00)
[2022-11-02 04:35] LABS: Hematocrit 40.9 % (38-53); Hemoglobin 13.3 g/dL (13.2-16.3); Mean Corpuscular Hemoglobin 29.7 pg (27-33); Mean Corpuscular Hgb Conc 32.5 g/dL (31-36); Mean Corpuscular Volume 91.5 fL (80-97); Mean Platelet Volume 8.6 fL (7.5-11.2); Platelet Count 229 10^3/uL (150-450); Red Blood Count 4.47 10^6/uL (4.06-5.63); Red Cell Distribution Width 21.6 % (12-17); White Blood Count 11.5 10^3/uL (3.6-10.2)
[2022-11-02 05:08] LABS: Albumin 2.6 g/dL (3.2-5.2); Albumin/Globulin Ratio 1.2 (1-3); Calcium 8.6 mg/dL (8.6-10.3); Creatinine, Serum 1.67 mg/dL (0.67-1.17); Globulin 2.1 g/dL (2-4); Magnesium 2.1 mg/dL (1.9-2.7); Phosphorus 2.2 mg/dL (2.5-5.0); Potassium 4.9 mmol/L (3.5-5.0); Total Bilirubin 1.2 mg/dL (0.2-1.0); Total Protein 4.7 g/dL (6.4-8.9); eGFR CKD-EPI 42.4 (>60)
[2022-11-02 05:14] LABS: ABS Basophils 0.1 10^3/uL (0.0-0.1); ABS Lymphocytes 0.3 10^3/uL (1.0-4.8); ABS Monocytes 0.7 10^3/uL (0.0-1.1); ABS Neutrophils 10.5 10^3/uL (1.5-7.6); ABS Nucleated RBC 0.01 10^3/ul; Eosinophil % 0.3 %; Lymphocyte % 2.6 %; Nucleated Red Blood Cells % 0.1 /100 WBC (0.0-0.4)
[2022-11-02] MEDS: fentaNYL Patch Check Q Shift NOTE FOLLOW UP SCH ×2 (07:23→19:10)
[2022-11-02] MEDS ORDERED: INJECTOR SUBCUT SCH (09:00)
[2022-11-02] MEDS ORDERED: SEMAGLUTIDE SUBCUT SCH (09:00)
[2022-11-02] MEDS: Lactulose 30 ml UDC PO SCH ×2 (09:15→20:28)
[2022-11-02 09:44] LABS: INR 1.34 (0.88-1.18)
[2022-11-02] MEDS: Digoxin IV 0.5 MG/2 ML AMP (0.25 MG/ML) IV SLOW PU SCH (10:37)
[2022-11-02] MEDS: Pantoprazole VIAL 40 MG VIAL IV SCH ×2 (10:37→20:47)
[2022-11-02] MEDS: fentaNYL 100 mcg/2 ml 50 MCG/ML VIAL IV SLOW PU PRN ×2 (12:52→20:53)
[2022-11-02] MEDS ORDERED: SEMAGLUTIDE 0.5 MG SUBCUT SCH (15:00)
[2022-11-02] MEDS: TPN 24 HR with Dextrose 40% Water 500 ML, Amino Acid Infusion 10% 850 ML, Sterile Water... CENT\\PICC SCH (16:41)
[2022-11-02 17:08] LABS: Body Fluid Source Peritonial Fluid
[2022-11-02 17:09] LABS: Body Fluid Appearance Bloody; Body Fluid Color Red
[2022-11-02] MEDS: Metoprolol Tartrate 5 mg VIAL 5 ml VIAL (1 mg/ml) IV PRN (17:11)
[2022-11-02 17:43] LABS: Body Fluid WBC 173 /mcL
[2022-11-02 17:47] LABS: Body Fluid Mono 14 %; Body Fluid Total Cells Counted 200
[2022-11-02] MEDS: Albumin Human 25% 25 GM/100 ML BTL IV SCH ×2 (18:11→18:48)
[2022-11-03] MEDS: fentaNYL 100 mcg/2 ml 50 MCG/ML VIAL IV SLOW PU PRN ×3 (06:16→19:47)
[2022-11-03 06:21] LABS: ABS Basophils 0.1 10^3/uL (0.0-0.1); ABS Eosinophils 0.1 10^3/uL (0.0-0.5); ABS Lymphocytes 0.3 10^3/uL (1.0-4.8); ABS Monocytes 0.7 10^3/uL (0.0-1.1); ABS Neutrophils 11.5 10^3/uL (1.5-7.6); ABS Nucleated RBC 0.01 10^3/ul; Eosinophil % 0.6 %; Hematocrit 39.3 % (38-53); Hemoglobin 12.6 g/dL (13.2-16.3); Lymphocyte % 2.1 %; Mean Corpuscular Hemoglobin 29.5 pg (27-33); Mean Corpuscular Hgb Conc 32.1 g/dL (31-36); Mean Platelet Volume 8.3 fL (7.5-11.2); Nucleated Red Blood Cells % 0.1 /100 WBC (0.0-0.4); Platelet Count 155 10^3/uL (150-450); Red Blood Count 4.27 10^6/uL (4.06-5.63); Red Cell Distribution Width 21.2 % (12-17); White Blood Count 12.6 10^3/uL (3.6-10.2)
[2022-11-03 06:27] LABS: INR 1.42 (0.88-1.18)
[2022-11-03 06:42] LABS: Albumin/Globulin Ratio 1.7 (1-3); Creatinine, Serum 1.4 mg/dL (0.67-1.17); Globulin 1.8 g/dL (2-4); Total Bilirubin 1.5 mg/dL (0.2-1.0); Total Protein 4.8 g/dL (6.4-8.9); eGFR CKD-EPI 52.4 (>60)
[2022-11-03] MEDS: fentaNYL Patch Check Q Shift NOTE FOLLOW UP SCH ×2 (07:46→19:55)
[2022-11-03] MEDS: Digoxin IV 0.5 MG/2 ML AMP (0.25 MG/ML) IV SLOW PU SCH (10:37)
[2022-11-03] MEDS: Pantoprazole VIAL 40 MG VIAL IV SCH ×2 (10:46→21:52)
[2022-11-03] MEDS: Lactulose 30 ml UDC PO SCH ×2 (11:50→21:54)
[2022-11-03] MEDS: fentaNYL PATCH 25 MCG/HR 1 PATCH TRANSDERM SCH (14:51)
[2022-11-03] MEDS: TPN 24 HR with Dextrose 40% Water 500 ML, Amino Acid Infusion 10% 850 ML, Sterile Water... CENT\\PICC SCH (17:51)
[2022-11-03] MEDS: Metoprolol Tartrate 5 mg VIAL 5 ml VIAL (1 mg/ml) IV PRN (21:53)
[2022-11-03] MEDS: Heparin 5000 UNITS/ML 1 mL VIAL SUBCUT SCH (21:53)
[2022-11-04] MEDS: Heparin 5000 UNITS/ML 1 mL VIAL SUBCUT SCH ×3 (04:47→20:46)
[2022-11-04] MEDS: fentaNYL 100 mcg/2 ml 50 MCG/ML VIAL IV SLOW PU PRN ×2 (04:47→09:10)
[2022-11-04] MEDS: fentaNYL Patch Check Q Shift NOTE FOLLOW UP SCH ×2 (06:41→19:04)
[2022-11-04] MEDS: Pantoprazole VIAL 40 MG VIAL IV SCH ×2 (09:16→20:46)
[2022-11-04] MEDS: Lactulose 30 ml UDC PO SCH ×2 (10:06→23:10)
[2022-11-04 10:39] LABS: ABS Basophils 0.1 10^3/uL (0.0-0.1); ABS Eosinophils 0.1 10^3/uL (0.0-0.5); ABS Lymphocytes 0.2 10^3/uL (1.0-4.8); ABS Monocytes 1.1 10^3/uL (0.0-1.1); ABS Neutrophils 13.1 10^3/uL (1.5-7.6); ABS Nucleated RBC 0.07 10^3/ul; Eosinophil % 0.5 %; Hemoglobin 13.1 g/dL (13.2-16.3); Lymphocyte % 1.5 %; Mean Corpuscular Hemoglobin 29.5 pg (27-33); Mean Corpuscular Hgb Conc 31.9 g/dL (31-36); Mean Corpuscular Volume 92.7 fL (80-97); Mean Platelet Volume 8.7 fL (7.5-11.2); Nucleated Red Blood Cells % 0.5 /100 WBC (0.0-0.4); Platelet Count 156 10^3/uL (150-450); Red Blood Count 4.43 10^6/uL (4.06-5.63); Red Cell Distribution Width 20.9 % (12-17); White Blood Count 14.5 10^3/uL (3.6-10.2)
[2022-11-04 11:23] LABS: Creatinine, Serum 1.18 mg/dL (0.67-1.17); Potassium 5.6 mmol/L (3.5-5.0)
[2022-11-04 11:24] LABS: Albumin 2.6 g/dL (3.2-5.2); Albumin/Globulin Ratio 1.4 (1-3); Globulin 1.8 g/dL (2-4); Magnesium 1.9 mg/dL (1.9-2.7); Phosphorus 2.5 mg/dL (2.5-5.0); Total Bilirubin 1.7 mg/dL (0.2-1.0); Total Protein 4.4 g/dL (6.4-8.9); eGFR CKD-EPI 64.3 (>60)
[2022-11-04] MEDS: Digoxin IV 0.5 MG/2 ML AMP (0.25 MG/ML) IV SLOW PU SCH (11:31)
[2022-11-04] MEDS: Morphine 2 MG/ML SYRINGE IV PRN ×2 (12:22→14:34)
[2022-11-04] MEDS: Metoprolol Tartrate 5 mg VIAL 5 ml VIAL (1 mg/ml) IV PRN (17:34)
[2022-11-04] MEDS: TPN 24 HR with Dextrose 40% Water 500 ML, Amino Acid Infusion 10% 850 ML, Sterile Water... CENT\\PICC SCH (17:35)
[2022-11-05] MEDS: Heparin 5000 UNITS/ML 1 mL VIAL SUBCUT SCH ×3 (04:49→20:14)
[2022-11-05] MEDS: Morphine 2 MG/ML SYRINGE IV PRN ×5 (04:51→15:11)
[2022-11-05] MEDS: fentaNYL Patch Check Q Shift NOTE FOLLOW UP SCH ×2 (08:36→18:55)
[2022-11-05 09:30] LABS: Calcium 9.2 mg/dL (8.6-10.3); Creatinine, Serum 1.23 mg/dL (0.67-1.17); Potassium 5.6 mmol/L (3.5-5.0); eGFR CKD-EPI 61.2 (>60)
[2022-11-05] MEDS: Lactulose 30 ml UDC PO SCH ×2 (10:34→19:52)
[2022-11-05] MEDS: Pantoprazole VIAL 40 MG VIAL IV SCH ×2 (10:36→19:53)
[2022-11-05] MEDS: Digoxin IV 0.5 MG/2 ML AMP (0.25 MG/ML) IV SLOW PU SCH (10:37)
[2022-11-05] MEDS ORDERED: Morphine ORAL CONCENTRATE 5 MG/0.25 ML ORAL.SYRIN SL PRN (11:37)
[2022-11-05 12:06] LABS: Lactate Dehydrogenase, BF 99 U/L
[2022-11-05] MEDS ORDERED: HYDROcodone/ACET. 7.5/325 LIQ 15 ML UDC PO PRN (15:21)
[2022-11-05 15:22] LABS: Albumin, BF 0.6 g/dL; Fluid Type, Albumin PERITONEAL; Fluid Type, Protein, Total PERITONEAL; Glucose, BF 177 mg/dL; Total Protein, BF 1.3 g/dL
[2022-11-05] MEDS: TPN 24 HR with Dextrose 40% Water 500 ML, Amino Acid Infusion 10% 850 ML, Sterile Water... CENT\\PICC SCH (16:48)
[2022-11-05] MEDS: Metoprolol Tartrate 5 mg VIAL 5 ml VIAL (1 mg/ml) IV PRN (19:53)
[2022-11-06] MEDS: Metoprolol Tartrate 5 mg VIAL 5 ml VIAL (1 mg/ml) IV PRN (00:53)
[2022-11-06] MEDS: Morphine 2 MG/ML SYRINGE IV PRN ×4 (01:20→19:22)
[2022-11-06] MEDS: Heparin 5000 UNITS/ML 1 mL VIAL SUBCUT SCH (05:45)
[2022-11-06] MEDS: Lactulose 30 ml UDC PO SCH (07:41)
[2022-11-06] MEDS: fentaNYL Patch Check Q Shift NOTE FOLLOW UP SCH ×2 (08:19→19:22)
[2022-11-06] MEDS: Pantoprazole VIAL 40 MG VIAL IV SCH (09:51)
[2022-11-06] MEDS: Digoxin IV 0.5 MG/2 ML AMP (0.25 MG/ML) IV SLOW PU SCH (09:51)
[2022-11-06] MEDS: fentaNYL PATCH 25 MCG/HR 1 PATCH TRANSDERM SCH (13:44)
[2022-11-06 14:24] VITALS: BP 118/77
[2022-11-06] MEDS: Atropine 1% (ORAL/SL) 15 ML BTL SL PRN (19:31)
[2022-11-07] MEDS: Morphine 2 MG/ML SYRINGE IV PRN (05:21)
[2022-11-07] MEDS: fentaNYL Patch Check Q Shift NOTE FOLLOW UP SCH ×2 (07:04→18:56)
[2022-11-07] MEDS: Digoxin IV 0.5 MG/2 ML AMP (0.25 MG/ML) IV SLOW PU SCH (08:24)
[2022-11-07] MEDS: Morphine ORAL CONCENTRATE 5 MG/0.25 ML ORAL.SYRIN SL PRN ×3 (08:26→17:40)
[2022-11-07] MEDS: Morphine ORAL CONCENTRATE 5 MG/0.25 ML ORAL.SYRIN SL SCH ×3 (15:09→23:39)
[2022-11-07] MEDS: Atropine 1% (ORAL/SL) 15 ML BTL SL PRN (17:37)
[2022-11-08] MEDS: Morphine ORAL CONCENTRATE 5 MG/0.25 ML ORAL.SYRIN SL SCH ×6 (03:00→23:12)
[2022-11-08] MEDS: fentaNYL Patch Check Q Shift NOTE FOLLOW UP SCH ×2 (06:43→18:38)
[2022-11-08] MEDS: Atropine 1% (ORAL/SL) 15 ML BTL SL PRN ×4 (10:45→22:17)
[2022-11-08] MEDS: Morphine ORAL CONCENTRATE 5 MG/0.25 ML ORAL.SYRIN SL PRN ×2 (17:33→21:30)
== END 2022-11-08 23:50 | disposition expired | DRG 872 ==
LOC: ED 08:37 → SUATTDRO 11:54 → EDHOLD 11:54 → MED 15:42
PROVIDERS: ADMIT Hospitalist; ATTEND Hospitalist